=== PATIENT | male | born 1975 | race Caucasian/White ===

== ENCOUNTER 2025-08-11 08:49 | Emergency (ER) | payer OTHER, SELFPAY ==
[2025-08-11 09:00] VITALS: BP 125/69; PULSE 76; RESP 18; TEMP 36.2; O2SAT 99
--- OUTSIDE RECORDS SUMMARY | 2025-08-11 09:01 | XMS_ITS | Clinical Summary ---
Author Organization [facility] Address [address] [place] [id number] Care Team Providers Care Soup Person Name Role Phone None, Provider Primary Care Provider Unavaila ble Allergies No known active allergies Social History Tobacco Use Types Packs/Day Years Used Date Smoking Tobacco: Never Assessed Sex and Gender Information Value Date Recorded Sex Assigned at Not on file Legal Sex Male 2:16 PM [employer] Gender Identity Not on file Sexual Orientation Not on file Last Filed Vital Signs Vital Sign Reading Time Taken Comments Blood Pressure 117/70 10/03/2024 6:30 PM [employer] Pulse 77 10/03/2024 6:30 PM [employer] Temperature 36.8 C (98.2 F) 10/03/2024 3:21 PM [employer] Respiratory Rate 15 10/03/2024 6:30 PM [employer] Oxygen Saturation 99% 10/03/2024 6:30 PM [employer] Inhaled Oxygen Concentration - - Weight 81.6 kg (180 lb) 10/03/2024 3:21 PM [employer] Height 193 cm (6' 4) 10/03/2024 3:21 PM [employer] Body Mass Index 21.91 10/03/2024 3:21 PM [employer] Plan of Treatment Health Maintenance Due Date Last Done Comments Colorectal Cancer Screening Colonoscopy (10 Years) 1975 Annual Physical 1978 Hepatitis C 1993 Hepatitis B Vaccines (1 of 3 - 19+ 3-dose series) 1994 COVID-19 Vaccine (2024-2 6 season) 2025 08/16/2021, 11/30/2020, 11/02/2020 Influenza Adult (#1) 2025 09/08/2022, 07/26/2021, 06/18/2020 DTaP, Tdap and Td Vaccines ( 2 - Td or Tdap) 04/08/2030 04/08/2020 Hepatitis A Vaccines Aged Out No long er eligible based on patient's age to complete this topic Meningococcal B Vaccine Aged Out No l onger eligible based on patient's age to complete this topic Meningococcal Vaccine Aged Out No martha tamera eligible based on patient's age to complete this topic Pneumococcal Vaccine: Pediatrics (0 to 5 Years) and At-Risk Patients (6 to 49 Years) Aged Out No longer eligible b ased on patient's age to complete this topic RSV Immunizations Under 20 Months Aged Out No longer eligible b ased on patient's age to complete this topic Insurance [employer] Care Teams Soup Person Relationship Specialty Start Date End Date None, Provider, PCP - General UNKNOWN PHYSICIAN SPECIALTY 08/11/24
--- NOTE | 2025-08-11 09:16 | ED.URI ---
HPI - URI/Sore Throat General Chief Complaint: Upper Respiratory Infection Stated Complaint: URI Time Seen by Provider: 08/11/25 09:03 Source: patient and RN notes reviewed Mode of arrival: ambulatory Limitations: no limitations History of Present Illness HPI Narrative: Patient presents today with a 4 day history of nasal congestion with green nasal drainage and cough. Denies fever or shortness of breath. He has tried no OTC treatment prior to arrival. States symptoms have improved since onset. States a co-worker was sick last week with similar symptoms and patient has been exposed. Related Data Home Medications ?Medication ?Instructions ?Recorded ?Confirmed ?Last Taken ?Type No Home Medications 08/11/25 08/11/25 Unknown History Allergies Allergy/AdvReac Type Severity Reaction Status Date / Time No Known Allergies Allergy Verified 08/11/25 09:00 [facility] At time of signature, I have reviewed and agree with nursing past medical, surgical, social and family history unless otherwise noted. Please see nursing chart for further information. There is no relevant family history pertinent to the presenting complaint Exam Narrative: GENERAL: Well-appearing, well-nourished, and in no acute distress. HEAD: Normocephalic, atraumatic. EYES: EOMI. No redness or drainage. Conjunctivae normal. ENT: Mucous membranes pink and moist. Nares mildly congested. No rhinorrhea. TMs normal bilaterally. Throat normal. Uvula midline. NECK: Normal AROM. Supple. No lymphadenopathy. CHEST: No respiratory distress. Clear to auscultation. HEART: Regular rate and rhythm. No murmur appreciated. EXTREMITIES: Normal range of motion. No edema. SKIN: Warm, dry, no rash. Capillary refill normal. Normal skin turgor. NEURO: No focal deficits. Alert and oriented x3. Gait steady. PSYCH: Normal affect. No signs of depression or anxiety. Course Course Level of Care: Express Care Visit Vital Signs Vital signs: Vital Signs Temperature 97.2 F L 08/11/25 09:00 Pulse Rate 76 08/11/25 09:00 Respiratory Rate 18 08/11/25 09:00 Blood Pressure 125/69 08/11/25 09:00 Pulse Oximetry 99 08/11/25 09:00 Oxygen Delivery Room Air 08/11/25 09:00 Temperature 97.2 F L 08/11/25 09:00 Pulse Rate 76 08/11/25 09:00 Respiratory Rate 18 08/11/25 09:00 Blood Pressure 125/69 08/11/25 09:00 Pulse Oximetry 99 08/11/25 09:00 Oxygen Delivery Room Air 08/11/25 09:00 Reviewed MDM - URI/Sore Throat MDM Narrative Medical decision making narrative: Patient presents today with a 4 day history of nasal congestion with green nasal drainage and cough. Denies fever or shortness of breath. He has tried no OTC treatment prior to arrival. States symptoms have improved since onset. States a co-worker was sick last week with similar symptoms and patient has been exposed. Upon exam, patient has some mild nasal congestion, otherwise normal exam. Symptoms likely viral in etiology. No testing indicated at this time. Discussed [id number] medication use and duration of illness. No prescription medications indicated at this time. Anticipatory guidance given. Vital signs stable. Patient agrees with plan. Differential Diagnosis Differential diagnosis: Likely upper respiratory infection, sinusitis, viral infection and bronchitis Critical Care Time Critical Care Time Critical Care Time: No Discharge Plan Discharge Clinical Impression: Upper respiratory infection Qualifiers: URI type: unspecified URI Qualified Code(s): J06.9 - Acute upper respiratory infection, unspecified Patient Disposition: Home Condition: Stable Instructions: Upper Respiratory Infection (DC) Additional Instructions: Your symptoms are likely due to a viral illness, which is not treated with antibiotics. Virus symptoms can last for up to 7-10days. Take Tylenol or ibuprofen for pain or fever. Rest and stay hydrated. Consider a decongestant such as Sudafed or an intranasal steroid such as Flonase to help with your nasal congestion. You may also consider some Mucinex to help with your chest congestion. Follow up with your PCP in 7 days if symptoms are not improving. Go to the ER immediately if you develop shortness of breath, difficulty swallowing, or any other concerning symptoms. Patient Language: Turkmen Prescriptions: No Action No Home Medications Follow-up/Referrals: UNKNOWN,DOCTOR [Primary Care Provider] Time of Disposition: :13
== END 2025-08-11 09:16 | disposition home or self-care (01) ==
PROVIDERS: Emergency Provider Nurse Practitioner
DX: J06.9 Acute upper respiratory infection, unspecified (principal)
CPT/HCPCS: 99202; G0463